=== PATIENT | male | born 2000 | race Caucasian/White ===

== ENCOUNTER 2025-01-17 23:23 | Emergency (ER) | payer SELFPAY ==
[2025-01-17 23:38] VITALS: BP 139/67; PULSE 61; RESP 16; TEMP 36.6; O2SAT 99
== END 2025-01-18 01:30 | disposition left against medical advice (07) ==
LOC: ANHED 01-18 02:00
DX: S61.011A Laceration without foreign body of right thumb without damage to nail, initial encounter (principal)
CPT/HCPCS: 99199

== ENCOUNTER 2025-01-18 09:45 | Emergency (ER) | payer BC, SELFPAY ==
--- NOTE | 2025-01-18 09:51 | ED.WOUNDLAC ---
HPI - Wound/Laceration General Chief Complaint: Wound/Laceration Stated Complaint: R thumb cut Source: patient and RN notes reviewed Mode of arrival: ambulatory Limitations: no limitations History of Present Illness HPI narrative: Patient is a 24-year-old male who presents to the [facility] with laceration to the right thumb. Patient states that he was vigorously cleaning a crock pot last night around 10:30 p.m.. He states that the crock pot broke and caused a laceration to his right thumb. He presents with a 1.5 cm laceration to the dorsal aspect of the distal phalanx of the right thumb. Neurovascular status intact. Sensation intact. He is unsure whether not he is up-to-date on his tetanus but declines tetanus at this time. Related Data Home Medications ?Medication ?Instructions ?Recorded ?Confirmed ?Last Taken ?Type No Home Medications 01/18/25 01/18/25 Unknown History Allergies Allergy/AdvReac Type Severity Reaction Status Date / Time No Known Allergies Allergy Verified 01/18/25 10:00 Review of Systems Review of Systems: CONSTITUTIONAL: Denies fever, chills, or sweats. EYES: Denies visual changes, redness, or discharge. ENT: Denies otalgia and sore throat CARDIOVASCULAR: Denies chest pain, palpitations, or edema. RESPIRATORY: Denies cough or dyspnea. GASTROINTESTINAL: Denies abdominal pain, nausea, vomiting, or diarrhea. GENITOURINARY: Denies dysuria or hematuria. SKIN: Reports laceration to right thumb MUSCULOSKELETAL: Denies back pain, joint pain, or myalgia. NEUROLOGIC: Denies headache, numbness, or weakness. Pertinent positives per HPI. PMFSH Comments At the time of my signature, I reviewed and agree with the nursing past medical, surgical, social, and family history. There is no relevant family history pertinent to the patient complaint. Exam Narrative: GENERAL: This is a well-nourished, well-developed patient, in no apparent distress. HEAD: normocephalic, atraumatic. EYES: PERRL. Sclera clear/white. Vision is grossly intact. EARS: External ears normal, auditory canals clear and without drainage, TMs normal without perforation. Hearing grossly intact. NOSE: External nose normal with no obvious nasal discharge, nares without redness, no rhinorrhea. THROAT: Mucous membranes moist, posterior pharynx clear. NECK: Neck supple, non-tender without lymphadenopathy, masses or thyromegaly. CARDIOVASCULAR: Regular rate and rhythm without murmurs, gallops, or rubs. RESPIRATORY: Clear to auscultation. Breath sounds equal bilaterally. No wheezes, rales, or rhonchi. GASTROINTESTINAL: Abdomen soft, non-tender, nondistended. Bowel sounds are active. No hepato-splenomegaly, or palpable masses. No guarding. SKIN: 1.5 cm Laceration to the dorsal aspect of his distal phalanx of the right thumb. Bleeding controlled. Cap refill is normal. Neurovascular status intact. Sensation intact. NEURO: awake, alert, and oriented to person, place and time. There were no obvious focal neurologic abnormalities. EXTREMITIES: No clubbing, cyanosis, or edema. No joint tenderness, effusion, or edema noted. BACK: Nontender without deformity or crepitance. No flank tenderness. Course Course Level of Care: Express Care Visit Vital Signs Vital signs: Vital Signs Temperature 98.1 F 01/18/25 10:05 Pulse Rate 63 01/18/25 10:05 Respiratory Rate 16 01/18/25 10:05 Blood Pressure 115/71 01/18/25 10:05 Pulse Oximetry 100 01/18/25 10:05 Temperature 98.1 F 01/18/25 10:05 Pulse Rate 63 01/18/25 10:05 Respiratory Rate 16 01/18/25 10:05 Blood Pressure 115/71 01/18/25 10:05 Pulse Oximetry 100 01/18/25 10:05 Reviewed MDM - Wound/Laceration MDM Narrative Medical decision making narrative: -adhesive works like a bandage; do not use antibiotic ointment as it can break down the adhesive -You can shower while the adhesive is on your skin, but do not take a bath or soak or scrub the area for 7-10 days. Dry your skin by patting it gently with a towel. -The adhesive will peel off on its own; usually by 5-10days. If after 10 days, you still have adhesive on you, you can use antibiotic ointment or petroleum jelly to get it off. After you heal, you should protect the scar from the sun. Use sunscreen on the area or wear clothes or a hat that covers the scar. Follow up with your PCP is needed Differential Diagnosis Differential diagnosis: Likely laceration, abscess, abrasion and avulsion of skin Critical Care Time Critical Care Time Critical Care Time: No Discharge Plan Discharge Clinical Impression: Laceration of right thumb Qualifiers: Encounter type: initial encounter Damage to nail status: without damage Foreign body presence: without foreign body Qualified Code(s): S61.011A - Laceration without foreign body of right thumb without damage to nail, initial encounter Patient Disposition: Home Condition: Stable Instructions: Laceration (ED), Skin Adhesive Care (ED) Additional Instructions: -adhesive works like a bandage; do not use antibiotic ointment as it can break down the adhesive -You can shower while the adhesive is on your skin, but do not take a bath or soak or scrub the area for 7-10 days. Dry your skin by patting it gently with a towel. -The adhesive will peel off on its own; usually by 5-10days. If after 10 days, you still have adhesive on you, you can use antibiotic ointment or petroleum jelly to get it off. After you heal, you should protect the scar from the sun. Use sunscreen on the area or wear clothes or a hat that covers the scar. Follow up with your PCP is needed Patient Language: Georgian Prescriptions: No Action No Home Medications Follow-up/Referrals: UNKNOWN,DOCTOR [Primary Care Provider] Stand Alone Forms: Work/School Release IP Time of Disposition: 10:13
[2025-01-18 10:05] VITALS: BP 115/71; PULSE 63; RESP 16; TEMP 36.7; O2SAT 100
== END 2025-01-18 10:15 | disposition home or self-care (01) ==
PROVIDERS: Emergency Provider Nurse Practitioner
DX: S61.011A Laceration without foreign body of right thumb without damage to nail, initial encounter (principal); W26.8XXA Contact with other sharp object(s), not elsewhere classified, initial encounter; Y93.G1 Activity, food preparation and clean up
CPT/HCPCS: 12001; 99212; G0463